=== PATIENT | male | born 1955 | race Caucasian/White ===

== ENCOUNTER 2020-01-31 22:43 | Emergency (ER) | payer OTHER ==
[~2020-01-31] VITALS: Ht 182.9 cm; Wt 86.3 kg
--- NOTE | 2020-01-31 23:11 | PHYS DOC ---
Past History Past Medical History: Alcoholism Smoking: Cigarettes Alcohol Use: Heavy General Adult EDM: Chief Complaint: ALTERED MENTAL STATUS HPI: HPI: " .. My said .. I had to come in.. " ".. Said I was not acting right... This whole week ".." I came in to just get her off my ass.." Patient is a 64 year old male who presents with above hx and complaints he was made to come in by for mental status changes since . Patient however feels he has not had any mental status changes. Patient does admit to drinking more than his usual intake. Did talk to over the phone she is concerned and he has had increased problems with short-term memory and seems more confused. is aware that he consumes alcohol and is most likely intoxicated however states seems different than his baseline chronic intoxication or alcohol abuse. Alcohol today was 224. No history patient trauma. No history of fever or chills. No history of recent travel. Patient and deny any specific ill contacts. Patient normally follows with Dr. Wharton. Review of Systems: Review of Systems: Constitutional: Denies fever or chills Eyes: Denies change in visual acuity HENT: Complains of nasal congestion. Denies sore throat Respiratory: Some history of nonproductive cough Cardiovascular: Denies chest pain or edema GI: Denies abdominal pain, nausea, vomiting, bloody stools or diarrhea : Denies dysuria Musculoskeletal: Denies back pain or joint pain Integument: Denies rash Neurologic: Denies headache, focal weakness or sensory changes . Patient does have some findings of slightly wide gait and discoordination. Endocrine: Denies polyuria or polydipsia Lymphatic: Denies swollen glands Psychiatric: Denies depression or anxiety Heart Score: HEART Score for Chest Pain: HEART Score for Chest Pain Response (Comments) Value History Slighlty/Non-Suspicious 0 ECG Normal 0 Age > 65 2 Risk Factors 1 or 2 Risk Factors 1 Total 3 Risk Factors: Risk Factors: DM, Current or recent (<one month) smoker, HTN, HLP, family history of CAD, obesity. Risk Scores: Score 0 - 3: 2.5% MACE over next 6 weeks - Discharge Home Score 4 - 6: 20.3% MACE over next 6 weeks - Admit for Clinical Observation Score 7 - 10: 72.7% MACE over next 6 weeks - Early Invasive Strategies Family History: Family History: Noncontributory to presentation Current Medications: Current Meds: See nursing for home meds Allergies: Allergies: Allergies Coded Allergies Type Severity Reaction Last Updated Verified No Known Drug Allergies 01/31/20 No Physical Exam: PE: Constitutional: no acute distress, intoxicated and appearance. [] HENT: Normocephalic, atraumatic, bilateral external ears normal, oropharynx moist, postnasal drainage, no oral exudates, nose swollen turbinates and rhinorrhea. Eyes: PERRLA, EOMI, conjunctiva mild injected , no discharge. [] Neck: Normal range of motion, no tenderness, supple, no stridor. [] Cardiovascular:Heart rate regular rhythm, no murmur [] Lungs & Thorax: Bilateral breath sounds equal at apex with few scattered wheezes on auscultation [] Abdomen: Bowel sounds normal, soft, no tenderness, no masses, no pulsatile masses. Obese. Skin: Warm, dry, no erythema, no rash. Few areas of bony point contusions various stages of healing Back: No tenderness, no CVA tenderness. [] Extremities: No tenderness, no cyanosis, no clubbing, ROM intact, no edema. Arthritic changes. Neurologic: Alert and oriented X 3, moves all extremities on request, does have slight decrease distal plantar sensory function,, no focal deficits noted. Does have mild discoordination. Does have a slightly wide gait. DTRs +2 brachial and patella. Patient mild bilateral drift. Right-hand dominant. Psychologic: Affect angry affect his were demanding he come to the emergency department for evaluation, judgement normal, mood normal. Does have some slight short-term memory issues Current Patient Data: Labs: Laboratory Tests Test 01/31/20 22:51 Glucose (Fingerstick) 92 mg/dL (70-99) EKG: EKG: My interpretation EKG showed sinus rhythm at 75 bpm. Some bimodal P waves on the left. No findings acute STEMI with contralateral changes Radiology/Procedures: Radiology/Procedures: [[address] [address] IMAGING REPORT Signed PATIENT: LEDA HOWARD ACCOUNT: [id number] : 1955 LOCATION: ER AGE: 64 SEX: M EXAM STATUS: REG ER ORD. PHYSICIAN: PATTI MILTON MD REASON: SLURRED SPEECH PROCEDURE: CT HEAD WO CONTRAST PQRS Compliance Statement: One or more of the following individualized dose reduction techniques were utilized for this examination: 1. Automated exposure control 2. Adjustment of the mA and/or kV according to patient size 3. Use of iterative reconstruction technique CT HEAD WITHOUT CONTRAST History: Reason: SLURRED SPEECH / Spl. Instructions: / History: Comparison: None. Procedure: Axial images are obtained of the head from the skull base through the vertex without IV contrast. Findings: There is generalized cerebral atrophy. No mass-effect, midline shift, hemorrhage, extra-axial fluid collection, or obvious acute infarction is identified. Basilar cisterns are patent. Bone windows demonstrate no acute calvarial abnormality. Mild mucosal thickening bilateral maxillary, left sphenoid, and bilateral ethmoid sinuses. There is no air-fluid level.. Mastoid air cells are well aerated. IMPRESSION: No acute intracranial abnormality. Electronically signed by: Jani Phillips MD (02/01/2020 12:48 AM) [facility] DICTATED AND SIGNED BY: JANI PHILLIPS MD DATE: 02/01/20 0048 CC: PATTI MILTON MD; TADEO WHARTON DO ~ ][place] [address] IMAGING REPORT Signed PATIENT: LEDA HOWARD ACCOUNT: [id number] : 1955 LOCATION: ER AGE: 64 SEX: M EXAM STATUS: DEP ER ORD. PHYSICIAN: PATTI MILTON MD REASON: DYSPNEA PROCEDURE: CHEST PA & LATERAL CHEST PA LATERAL History: Reason: DYSPNEA / Spl. Instructions: / History: Comparison: None. Findings: The cardiomediastinal silhouette is normal. Pulmonary vasculature is normal. The lungs are clear. There is biapical pleural parenchymal scarring. No pleural effusion or pneumothorax is seen. There is no acute bone abnormality. IMPRESSION: No acute cardiopulmonary process. Electronically signed by: Jani Phillips MD (02/01/2020 2:29 AM) [facility] DICTATED AND SIGNED BY: JANI PHILLIPS MD DATE: 02/01/20 0229 CC: PATTI MILTON MD; TADEO WHARTON DO ~ Course & Med Decision Making: Course & Med Decision Making Pertinent Labs and Imaging studies reviewed. (See chart for details) Patient encouraged to take a daily multivitamin. Patient encouraged to avoid further alcohol intake. Patient recommended to use Flonase 2 sprays each nostril every night before going to bed. Usually less than nasal spray or normal saline ear irrigations at least 4 times a day. Take Keflex 500-3 times a day. Push vitamin C and fruit drinks.. Return if any concerns. Follow-up primary care. Review ED work-up. Patient is ambulatory at time of discharge. Patient refuses further work-up towards the end of his visit. Patient encouraged to return anytime for any concerns. I have also advised patient Return anytime for further evaluation. Impression: 1. Alcohol intoxication-224 2. Chronic alcohol abuse 3. History of COPD 4. Pansinusitis [] Dragon Disclaimer: Dragon Disclaimer: This electronic medical record was generated, in whole or in part, using a voice recognition dictation system. Departure Departure: Disposition: 01 HOME/RESIDENCE PRIOR TO ADM Condition: STABLE Referrals: TADEO WHARTON DO (PCP) Scripts Cephalexin (KEFLEX) 500 Mg Capsule 500 MG PO TID for sinusitis, #60 BOTTLE Prov: PATTI MILTON MD 02/01/20 Justification of Admission: Justification of Admission: Justification of Admission Dx: N/A Dragon Disclaimer This chart was dictated in whole or in part using Voice Recognition software in a busy, high-work load, and often noisy Emergency Department environment. It may contain unintended and wholly unrecognized errors or omissions. Dragon Disclaimer This chart was dictated in whole or in part using Voice Recognition software in a busy, high-work load, and often noisy Emergency Department environment. It may contain unintended and wholly unrecognized errors or omissions. PATTI MILTON MD Jan 31, 2020 23:11
[2020-01-31] MEDS ORDERED: MVI, ADULT NO.4 WITH VIT K 10 ML, THIAMINE INJ 100 MG in IV RINGERS SOLUTION,LACTATED 1... IV ONE ×3 (23:15)
[2020-02-01] MEDS ORDERED: THIAMINE 200 MG/2 ML VIAL. IV ONE (00:01)
[2020-02-01] MEDS ORDERED: MVI, ADULT NO.4 WITH VIT K 10 ML VIAL IV ONE ×2 (00:01→00:03)
[2020-02-01 00:16] LABS: BASO % 1 % (0-3); EOS # 0.1 x10^3/uL (0.0-0.7); EOS % 2 % (0-3); HEMOGLOBIN 14.6 g/dL (13.0-17.5); LYMPH # 1.8 x10^3/uL (1.0-4.8); LYMPH % 26 % (24-48); MEAN CORPUSCULAR HEMOGLOBIN 32 pg (25-35); MEAN CORPUSCULAR HGB CONC 34 g/dL (31-37); MEAN CORPUSCULAR VOLUME 95 fL (79-100); MONO # 0.8 x10^3/uL (0.0-1.1); MONO % 11 % (0-9); NEUT # 4.3 x10^3uL (1.8-7.7); NEUT % 61 % (31-73); PLATELET COUNT 281 x10^3/uL (140-400); RED BLOOD COUNT 4.51 x10^6/uL (4.30-5.70); RED CELL DISTRIBUTION WIDTH 13.5 % (11.5-14.5)
[2020-02-01 00:26] LABS: CALCIUM 9.2 mg/dL (8.5-10.1); CREATININE 1.3 mg/dL (0.7-1.3); GFR 55.8; POTASSIUM 3.7 mmol/L (3.5-5.1)
[2020-02-01 00:33] LABS: ALBUMIN 3.7 g/dL (3.4-5.0); TOTAL BILIRUBIN 0.5 mg/dL (0.2-1.0); TOTAL PROTEIN 7.5 g/dL (6.4-8.2)
[2020-02-01 00:40] LABS: AMPHETAMINE/METHAMPHETAMINE NEG (NEG); BARBITURATES NEG (NEG); BENZODIAZEPINES NEG (NEG); CANNABINOIDS NEG (NEG); COCAINE NEG (NEG); METHADONE NEG (NEG); OPIATES NEG (NEG); PHENCYCLIDINE NEG (NEG)
--- NOTE | 2020-02-01 00:51 | RAD ---
PQRS Compliance Statement: One or more of the following individualized dose reduction techniques were utilized for this examination: 1. Automated exposure control 2. Adjustment of the mA and/or kV according to patient size 3. Use of iterative reconstruction technique CT HEAD WITHOUT CONTRAST History: Reason: SLURRED SPEECH / Spl. Instructions: / History: Comparison: None. Procedure: Axial images are obtained of the head from the skull base through the vertex without IV contrast. Findings: There is generalized cerebral atrophy. No mass-effect, midline shift, hemorrhage, extra-axial fluid collection, or obvious acute infarction is identified. Basilar cisterns are patent. Bone windows demonstrate no acute calvarial abnormality. Mild mucosal thickening bilateral maxillary, left sphenoid, and bilateral ethmoid sinuses. There is no air-fluid level.. Mastoid air cells are well aerated. IMPRESSION: No acute intracranial abnormality. Electronically signed by: Jani Phillips MD (02/01/2020 12:48 AM) [facility]
[2020-02-01] MEDS ORDERED: CEPH-264 PO (01:57)
[2020-02-01] MEDS ORDERED: IV NORMAL SALINE 50ML 50 ML ONE (01:59)
[2020-02-01] MEDS ORDERED: cefTRIAXone SODIUM 1 GM VIAL ONE (01:59)
[2020-02-01 02:00] VITALS: BP 151/96
--- NOTE | 2020-02-01 02:32 | RAD ---
CHEST PA LATERAL History: Reason: DYSPNEA / Spl. Instructions: / History: Comparison: None. Findings: The cardiomediastinal silhouette is normal. Pulmonary vasculature is normal. The lungs are clear. There is biapical pleural parenchymal scarring. No pleural effusion or pneumothorax is seen. There is no acute bone abnormality. IMPRESSION: No acute cardiopulmonary process. Electronically signed by: Jani Phillips MD (02/01/2020 2:29 AM) [facility]
[2020-02-01 03:40] LABS: BACTERIA,URINE 0 /HPF (0-FEW); BILIRUBIN,URINE NEG (NEG); CLARITY,URINE CLEAR; COLOR,URINE YELLOW; GLUCOSE,URINE NEG (NEG); NITRITE,URINE NEG (NEG); RBC,URINE 0 /HPF (0-2); UROBILINOGEN,URINE 0.2 mg/dL (0.2 mg/dL); WBC,URINE 0 /HPF (0-4)
--- NOTE | 2020-02-01 06:50 | EKG ---
[address] [address] Test Date: 2020-01-31 Test Time: 23:17:22 Pat Name: LEDA HOWARD Department: Room: Gender: M Disabilities Caregiver: : 1955 Requested By: PATTI MILTON Order Number: [id number] Reading MD: Measurements Intervals [place] Rate: 75 P: 62 SD: 168 QRS: 19 QRSD: 96 T: 51 QT: 382 QTc: 429 Interpretive Statements SINUS RHYTHM LEFT ATRIAL ABNORMALITY ABNORMAL ECG RI6.02 No previous ECG available for comparison
== END 2020-02-01 02:13 | disposition home or self-care (01) ==
LOC: ER 22:43
DX: F10.229 Alcohol dependence with intoxication, unspecified (principal); J44.9 Chronic obstructive pulmonary disease, unspecified; J32.4 Chronic pansinusitis; F17.210 Nicotine dependence, cigarettes, uncomplicated; Y90.7 Blood alcohol level of 200-239 mg/100 ml
CPT/HCPCS: 36415; 70450; 71046; 80053; 80307; 81001; 82947; 85025; 85610; 85730; 93005; 96365; 96366; 96375; 99285; G0480; J0696; J7120